=== PATIENT | male | born 1945 | race Hispanic/Latino ===

== ENCOUNTER → 2020-06-06 | Outpatient (CLI) | payer MEDICARE ==
[~2020-06-06] MED LIST: ATOR10 PO; CHOL200059 PO; LEVO25TA54 PO; LUTE40CA PO; PANT40TA54 PO
== END | disposition home or self-care (01) ==
LOC: RAH 11:25
PROVIDERS: ATTEND Physical Medicine & Rehabilitation
DX: M75.121 Complete rotator cuff tear or rupture of right shoulder, not specified as traumatic (principal); M75.122 Complete rotator cuff tear or rupture of left shoulder, not specified as traumatic
CPT/HCPCS: 73030

== ENCOUNTER → 2020-06-26 | Outpatient (CLI) | payer MEDICARE | END | disposition home or self-care (01) | LOC: RAH 12:07 | PROVIDERS: ATTEND Physical Medicine & Rehabilitation | DX: M19.012 Primary osteoarthritis, left shoulder (principal); M75.121 Complete rotator cuff tear or rupture of right shoulder, not specified as traumatic | CPT/HCPCS: 73221 ==

== ENCOUNTER → 2020-07-20 | Outpatient (CLI) | payer MEDICARE | END | disposition home or self-care (01) | LOC: RAH 11:07 | PROVIDERS: ATTEND Physical Medicine & Rehabilitation | DX: M75.111 Incomplete rotator cuff tear or rupture of right shoulder, not specified as traumatic (principal) | CPT/HCPCS: 73221 ==

== ENCOUNTER 2021-01-03 21:35 | Inpatient (IN) | payer MEDICARE ==
[~2021-01-03] VITALS: Ht 167.6 cm; Wt 79.4 kg
[~2021-01-03 21:35] MED LIST changes: +FERS325 PO
[2021-01-03] MEDS ORDERED: PANTOPRAZOLE 40 MG/VIAL IV SCH (22:00)
[2021-01-03 22:09] LABS: BASOPHILS % (AUTO) 0.7 % (0.0-5.0); EOSINOPHILS % (AUTO) 3.2 % (0.0-8.0); HEMATOCRIT 34.4 % (42-54); LYMPHOCYTES % (AUTO) 24.1 % (21.0-51.0); MEAN CORPUSCULAR HEMOGLOBIN 29.1 pg (27.0-33.0); MEAN CORPUSCULAR HGB CONC 32.3 g/dL (32.0-36.0); MEAN CORPUSCULAR VOLUME 90.3 fL (79-99); MONOCYTES % (AUTO) 10.2 % (3.0-13.0); NEUTROPHILS % (AUTO) 61.5 % (40.0-77.0); PLATELET COUNT (AUTO) 232 K/uL (130-400); RED BLOOD CELL COUNT(AUTO) 3.81 MIL/uL (4.50-6.20); RED CELL DISTRIBUTION WIDTH 13.6 % (11.0-15.5); WHITE BLOOD COUNT (AUTO) 7.1 K/uL (4.8-10.8)
[2021-01-03 22:21] LABS: POTASSIUM 3.9 mmol/L (3.5-5.1)
[2021-01-03 22:22] LABS: INR 1.05 (0.85-1.15); PROTHROMBIN TIME 11.4 SEC (9.6-11.6)
[2021-01-03 22:25] LABS: ALBUMIN 3.4 g/dL (3.5-5.0); BILIRUBIN,TOTAL 0.2 mg/dL (0.2-1.0); TOTAL PROTEIN, SERUM 6.8 g/dL (6.0-8.3)
[2021-01-03 23:04] VITALS: BP 138/78
[2021-01-04] VITALS (25 sets, daily range): BP systolic 102–149; BP diastolic 57–91
[2021-01-04] MEDS ORDERED: DEXTROSE 5 %-0.45 % NACL 1,000 ML IV ONE (00:30)
[2021-01-04] MEDS ORDERED: PANTOPRAZOLE 40 MG/VIAL ONE (00:44)
[2021-01-04] MEDS ORDERED: 0.9%NACL 100ML 100 ML ONE (00:45)
[2021-01-04] MEDS: PANTOPRAZOLE 40MG INJ 80 MG in 0.9%NACL 100ML 100 ML IV SCH ×3 (00:49→20:06)
[2021-01-04] MEDS ORDERED: PEG 3350/NA SULF,BICARB,CL/KCL 4000 ML SOLN ONE (02:35)
[2021-01-04] MEDS ORDERED: PEG 3350/NA SULF,BICARB,CL/KCL 4000 ML SOLN PO ONE (03:30)
[2021-01-04 03:38] LABS: HEMATOCRIT 31.4 % (42-54); MEAN CORPUSCULAR HEMOGLOBIN 29.1 pg (27.0-33.0); MEAN CORPUSCULAR HGB CONC 31.5 g/dL (32.0-36.0); MEAN CORPUSCULAR VOLUME 92.4 fL (79-99); PLATELET COUNT (AUTO) 226 K/uL (130-400); RED CELL DISTRIBUTION WIDTH 13.5 % (11.0-15.5); WHITE BLOOD COUNT (AUTO) 7.7 K/uL (4.8-10.8)
[2021-01-04 04:11] LABS: BASOPHILS % (MANUAL) 2 % (0-2); EOSINOPHILS % (MANUAL) 2 % (1-6); LYMPHOCYTES % (MANUAL) 25 % (22-44); MONOCYTES % (MANUAL) 3 % (2-9); SEGMENTED NEUTROPHILS % 68 % (40-70)
[2021-01-04 04:12] LABS: MAN.DIFF COMMENT-IMPRESSION MANUAL DIFFERENTIAL; PLATELET MORPHOLOGY COMMENT ADEQUATE
[2021-01-04 08:07] LABS: HEMATOCRIT 32.2 % (42-54)
[2021-01-04] MEDS ORDERED: PROPOFOL 10 MG/ML 20ML VIAL IV ONE (12:29)
[2021-01-04 13:47] LABS: HEMATOCRIT 26.6 % (42-54)
[2021-01-04] MEDS: 0.9%NACL 1000ML 1,000 ML IV SCH ×2 (16:45→16:46)
[2021-01-05 01:47] LABS: HEMATOCRIT 23.2 % (42-54); MEAN CORPUSCULAR HEMOGLOBIN 29.2 pg (27.0-33.0); MEAN CORPUSCULAR HGB CONC 32.3 g/dL (32.0-36.0); MEAN CORPUSCULAR VOLUME 90.3 fL (79-99); RED BLOOD CELL COUNT(AUTO) 2.57 MIL/uL (4.50-6.20); RED CELL DISTRIBUTION WIDTH 13.7 % (11.0-15.5); WHITE BLOOD COUNT (AUTO) 6.7 K/uL (4.8-10.8)
[2021-01-05 04:55] VITALS: BP 120/65
[2021-01-05] MEDS: PANTOPRAZOLE 40MG INJ 80 MG in 0.9%NACL 100ML 100 ML IV SCH (05:44)
[2021-01-05 08:00] VITALS: BP 126/70
[2021-01-05 10:30] LABS: MEAN CORPUSCULAR HEMOGLOBIN 29.3 pg (27.0-33.0); MEAN CORPUSCULAR VOLUME 91.4 fL (79-99); RED BLOOD CELL COUNT(AUTO) 2.8 MIL/uL (4.50-6.20); RED CELL DISTRIBUTION WIDTH 13.7 % (11.0-15.5); WHITE BLOOD COUNT (AUTO) 6.7 K/uL (4.8-10.8)
[2021-01-05] MEDS ORDERED: EPOETIN ALFA-EPBX (NON-ESRD) 10,000 UNIT/ML VIAL SQ SCH (11:00)
[2021-01-05 11:12] LABS: RETICULOCYTE % (AUTO) 0.98 % (0.42-2.23)
[2021-01-05] MEDS ORDERED: COMPOUND IV MISC 1 EACH IVSOLN MISC PRN (11:30)
[2021-01-05 11:45] LABS: THYROID STIMULATING HORMONE 3.89 uIU/mL (0.36-3.74)
[2021-01-05 11:57] VITALS: BP 140/77
[2021-01-05] MEDS: IRON SUCROSE COMPLEX 300 MG in 0.9%NACL 50ML 50 ML IV SCH (13:16)
[2021-01-05 15:51] LABS: HEMATOCRIT 23.5 % (42-54); MEAN CORPUSCULAR HEMOGLOBIN 28.8 pg (27.0-33.0); MEAN CORPUSCULAR HGB CONC 31.5 g/dL (32.0-36.0); MEAN CORPUSCULAR VOLUME 91.4 fL (79-99); RED BLOOD CELL COUNT(AUTO) 2.57 MIL/uL (4.50-6.20); RED CELL DISTRIBUTION WIDTH 13.7 % (11.0-15.5); WHITE BLOOD COUNT (AUTO) 5.9 K/uL (4.8-10.8)
[2021-01-05 16:00] VITALS: BP 129/74
[2021-01-05 16:23] LABS: % IRON SATURATION 108.2 % (30-44)
[2021-01-05 20:00] VITALS: BP 130/73
[2021-01-05] MEDS: PANTOPRAZOLE 40 MG/VIAL IVP SCH (20:45)
[2021-01-05] MEDS ORDERED: ATORVASTATIN 10 MG TABLET PO SCH (21:00)
[2021-01-06] VITALS: BP 143/74
[2021-01-06 04:00] VITALS: BP 120/73
[2021-01-06] MEDS ORDERED: LEVOTHYROXINE 25 MCG TABLET ONE (05:43)
[2021-01-06 05:51] LABS: BASOPHILS % (AUTO) 0.5 % (0.0-5.0); EOSINOPHILS % (AUTO) 2.7 % (0.0-8.0); HEMATOCRIT 27.8 % (42-54); LYMPHOCYTES % (AUTO) 15.9 % (21.0-51.0); MEAN CORPUSCULAR HEMOGLOBIN 28.7 pg (27.0-33.0); MEAN CORPUSCULAR HGB CONC 31.7 g/dL (32.0-36.0); MEAN CORPUSCULAR VOLUME 90.6 fL (79-99); NEUTROPHILS % (AUTO) 72.5 % (40.0-77.0); PLATELET COUNT (AUTO) 179 K/uL (130-400); RED BLOOD CELL COUNT(AUTO) 3.07 MIL/uL (4.50-6.20); WHITE BLOOD COUNT (AUTO) 7.4 K/uL (4.8-10.8)
[2021-01-06 06:30] LABS: CREATININE 0.9 mg/dL (0.5-1.5); POTASSIUM 4.2 mmol/L (3.5-5.1)
[2021-01-06] MEDS ORDERED: LEVOTHYROXINE 25 MCG TABLET PO SCH (07:30)
[2021-01-06 08:00] VITALS: BP 130/70
[2021-01-06] MEDS ORDERED: CHOLECALCIFEROL 1000 UNIT PO SCH (09:00)
[2021-01-06] MEDS: PANTOPRAZOLE 40 MG/VIAL IVP SCH (09:06)
[2021-01-06] MEDS: IRON SUCROSE COMPLEX 300 MG in 0.9%NACL 50ML 50 ML IV SCH (09:06)
[2021-01-06 11:04] LABS: HEMATOCRIT 27.8 % (42-54)
[2021-01-06 12:00] VITALS: BP 139/81
[2021-01-06 16:00] VITALS: BP 141/60
[2021-01-06] MEDS ORDERED: FOLI0.8T3 PO (16:25)
[2021-01-06] MEDS ORDERED: FERS325 PO (16:25)
[2021-01-07] MEDS ORDERED: LUTEIN 40 MG PO SCH (09:00)
== END 2021-01-06 17:50 | disposition home or self-care (01) | DRG 378 ==
LOC: EDH 21:35 → EDHIP 01-04 02:00 → 3CH 01-04 08:45
PROVIDERS: ADMIT Internal Medicine; ATTEND Internal Medicine
PROC: 0DJD8ZZ Inspection of Lower Intestinal Tract, Via Natural or Artificial Opening Endoscopic (ICD-10-PCS; 2021-01-04)
PROC: 30233N1 Transfusion of Nonautologous Red Blood Cells into Peripheral Vein, Percutaneous Approach (ICD-10-PCS; principal; 2021-01-05)
DX: K57.31 Diverticulosis of large intestine without perforation or abscess with bleeding (principal); D62 Acute posthemorrhagic anemia; Z20.822 Contact with and (suspected) exposure to COVID-19; E03.9 Hypothyroidism, unspecified; E78.5 Hyperlipidemia, unspecified; E78.00 Pure hypercholesterolemia, unspecified; Z80.42 Family history of malignant neoplasm of prostate; Z82.5 Family history of asthma and other chronic lower respiratory diseases; Z83.3 Family history of diabetes mellitus; Z82.49 Family history of ischemic heart disease and other diseases of the circulatory system
CPT/HCPCS: 36415; 36430; 45378; 74176; 76705; 80048; 80053; 82270; 82550; 82607; 82728; 82746; 83540; 83550; 83690; 84443; 85014; 85018; 85025; 85027; 85045; 85610; 85730; 86850; 86900; 86901; 86923; 87635; C9113; G0378; J1756; J2704; J7030; J7042; P9016

== ENCOUNTER → 2022-09-02 | Outpatient (CLI) | payer MEDICARE ==
[~2022-09-02] MED LIST changes: +FOLI0.8T3 PO
== END | disposition home or self-care (01) ==
LOC: RAH 12:52
PROVIDERS: ATTEND Neurological Surgery
DX: M50.322 Other cervical disc degeneration at C5-C6 level (principal); M48.02 Spinal stenosis, cervical region
CPT/HCPCS: 72141

== ENCOUNTER → 2022-11-28 | Outpatient (CLI) | payer MEDICARE | END | disposition home or self-care (01) | LOC: RAH 13:48 | PROVIDERS: ATTEND Internal Medicine | DX: R51.9 Headache, unspecified (principal) | CPT/HCPCS: 70450 ==

== ENCOUNTER → 2022-12-26 | Outpatient (CLI) | payer MEDICARE | END | disposition home or self-care (01) | LOC: RAH 12:57 | PROVIDERS: ATTEND Nurse Practitioner | DX: M75.111 Incomplete rotator cuff tear or rupture of right shoulder, not specified as traumatic (principal); M65.811 Other synovitis and tenosynovitis, right shoulder; M19.011 Primary osteoarthritis, right shoulder; M19.012 Primary osteoarthritis, left shoulder; M75.42 Impingement syndrome of left shoulder | CPT/HCPCS: 73221 ==

== ENCOUNTER 2023-03-14 07:48 | Observation (INO) | payer MEDICARE ==
[2023-03-12 14:31] LABS: BASOPHILS # (AUTO) 0.05 K/uL (0.00-0.20); BASOPHILS % (AUTO) 0.7 % (0.0-5.0); EOSINOPHILS # (AUTO) 0.18 K/uL (0.00-0.70); EOSINOPHILS % (AUTO) 2.6 % (0.0-8.0); HEMATOCRIT 47.7 % (42-54); IMMATURE GRANULOCYTE ABSOLUTE 0.03 K/uL (0-1); LYMPHOCYTES # (AUTO) 1.5 K/uL (1.0-4.8); MEAN CORPUSCULAR HEMOGLOBIN 31.9 pg (27.0-33.0); MEAN CORPUSCULAR HGB CONC 32.9 g/dL (32.0-36.0); MONOCYTES # (AUTO) 0.5 K/uL (0.1-1.0); MONOCYTES % (AUTO) 6.9 % (3.0-13.0); NEUTROPHILS # (AUTO) 4.8 K/uL (1.8-7.7); NEUTROPHILS % (AUTO) 68.4 % (40.0-77.0); PLATELET COUNT (AUTO) 204 K/uL (130-400); RED BLOOD CELL COUNT(AUTO) 4.92 MIL/uL (4.50-6.20); RED CELL DISTRIBUTION WIDTH 13.1 % (11.0-15.5)
[2023-03-12 14:37] LABS: INR 0.95 (0.85-1.15); PROTHROMBIN TIME 11.1 SEC (9.6-11.6)
[2023-03-12 14:40] VITALS: BP 149/79; PULSE 73; RESP 16
[2023-03-12 14:46] LABS: ALBUMIN 3.9 g/dL (3.5-5.0); CARBON DIOXIDE 27 mmol/L (21-32); CHLORIDE 105 mmol/L (101-111); CREATININE 1.1 mg/dL (0.5-1.5); GLOMERULAR FILTR. RATE CALC 69 mL/min (>90); GLUCOSE,RANDOM 151 mg/dL (70-105); POTASSIUM 4.2 mmol/L (3.5-5.1); SODIUM SERUM 143 mmol/L (136-145); UREA NITROGEN, BLOOD 18 mg/dL (7-18)
[~2023-03-14] VITALS: Ht 167.6 cm; Wt 86.2 kg
[2023-03-14] VITALS (25 sets, daily range): BP systolic 119–151; BP diastolic 73–87; PULSE 66–85; RESP 15–18
[~2023-03-14 07:48] MED LIST changes: -ATOR10 PO; +ATOR10TA69 PO; -CHOL200059 PO; -FERS325 PO; -FOLI0.8T3 PO; -LUTE40CA PO; -PANT40TA54 PO
[2023-03-14] MEDS ORDERED: LACTATED RINGERS 1000ML 1,000 ML IV ONE ×2 (08:22→09:50)
[2023-03-14] MEDS ORDERED: CEFAZOLIN SODIUM 2 GM VIAL ONE (08:22)
[2023-03-14] MEDS ORDERED: ROPIVACAINE 0.5% 5MG/ML 30ML ONE ×2 (08:25→17:34)
[2023-03-14] MEDS ORDERED: LIDOCAINE 2%-EPI 1:200,000 20 ML VIAL IJ ONE (08:25)
[2023-03-14] MEDS ORDERED: DEXAMETHASONE SOD PHOSPHATE 10MG/ML 1ML VIAL ONE (08:32)
[2023-03-14] MEDS ORDERED: MIDAZOLAM HCL 1 MG/ML 2ML VIAL ONE (08:32)
[2023-03-14] MEDS ORDERED: FENTANYL CITRATE PF 50 MCG/1 ML 2ML VIAL ONE (08:32)
[2023-03-14] MEDS ORDERED: PROPOFOL 10 MG/ML 20ML VIAL IV ONE (09:14)
[2023-03-14] MEDS ORDERED: ROCURONIUM 10MG/1ML SYR 10 MG/ML ML ONE (09:18)
[2023-03-14] MEDS ORDERED: EPINEPHRINE PF 1MG (1:1,000) 1 MG/ML AMP ONE (14:25)
[2023-03-14] MEDS ORDERED: EPINEPHRINE PF 1MG (1:1,000) 1 MG/ML AMP MISC ONE (14:55)
[2023-03-14] MEDS ORDERED: GLYCOPYRROLATE 1 MG/5 ML SYRINGE ONE (15:12)
[2023-03-14] MEDS ORDERED: PHENYLEPHRINE HCL 10 MG/ML 1ML VIAL IV ONE (16:54)
[2023-03-14] MEDS ORDERED: 0.9%NACL 10ML VIAL ONE (16:56)
[2023-03-14] MEDS ORDERED: KETOROLAC 30MG VIAL (30MG/ML) ONE (17:37)
[2023-03-14] MEDS ORDERED: NEOSTIGMINE 5MG/5ML SYR IV ONE (17:39)
[2023-03-14] MEDS ORDERED: CYCL5TAB PO (18:06)
[2023-03-14] MEDS ORDERED: GABA-529 PO (18:06)
[2023-03-14] MEDS ORDERED: HYDR-4060 PO (18:06)
[2023-03-14] MEDS: 0.9%NACL 1000ML 1,000 ML IV SCH (19:00)
[2023-03-14] MEDS ORDERED: CYCLOBENZAPRINE HCL 10 MG TABLET PO PRN (19:00)
[2023-03-14] MEDS ORDERED: POTASSIUM CHLORIDE 20MEQ/100ML 100 ML IV PRN (19:00)
[2023-03-14] MEDS: KETOROLAC 15MG/ML VIAL (15MG/ML) IV SCH (19:00)
[2023-03-14] MEDS ORDERED: BENZOCAINE/MENTH/CETYLPYRD CL 1 EACH LOZENGE MM PRN (19:00)
[2023-03-14] MEDS ORDERED: FE FUMARATE/FA/MV, MIN COMB#15 1 TAB PO PRN (19:00)
[2023-03-14] MEDS ORDERED: KETOROLAC 15MG/ML VIAL (15MG/ML) IV PRN (19:00)
[2023-03-14] MEDS ORDERED: TRAMADOL HCL 50 MG TABLET PO PRN (19:00)
[2023-03-14] MEDS ORDERED: ONDANSETRON 4MG INJ IVP PRN (19:00)
[2023-03-14] MEDS ORDERED: HYDROCODONE/ACETAMINOPHEN 5/325 MG TAB PO PRN (19:00)
[2023-03-14] MEDS ORDERED: CALCIUM CARB 500MG PO PRN (19:00)
[2023-03-14] MEDS ORDERED: KCL 20 MEQ ERTAB PO PRN (19:00)
[2023-03-14] MEDS ORDERED: POTASSIUM CHLORIDE 10% ELIXIR 20 MEQ/15 ML UDCUP PO PRN (19:00)
[2023-03-14] MEDS ORDERED: KETOROLAC 15MG/ML VIAL (15MG/ML) ONE (19:08)
[2023-03-14] MEDS: DOCUSATE SODIUM 100 MG CAP PO SCH (21:13)
[2023-03-14] MEDS: GABAPENTIN 100 MG CAPSULE PO SCH (21:13)
[2023-03-15] VITALS: BP 120/75; PULSE 63; RESP 18
[2023-03-15 01:00] VITALS: BP 135/84; PULSE 73; RESP 18
[2023-03-15] MEDS: CEFAZOLIN SODIUM 2 GM VIAL IVPB SCH ×2 (01:13→09:30)
[2023-03-15 02:00] VITALS: BP 131/75; PULSE 85; RESP 18
[2023-03-15] MEDS: KETOROLAC 15MG/ML VIAL (15MG/ML) IV SCH ×2 (03:00→05:22)
[2023-03-15 03:55] VITALS: BP 115/72; PULSE 75; RESP 18
[2023-03-15] MEDS: 0.9%NACL 1000ML 1,000 ML IV SCH (04:58)
[2023-03-15 08:00] VITALS: BP 163/93; PULSE 75; RESP 19
[2023-03-15] MEDS: DOCUSATE SODIUM 100 MG CAP PO SCH (09:00)
[2023-03-15] MEDS ORDERED: POLYETHYLENE GLYCOL 3350 17 GM POWD.PACK PO SCH (09:00)
[2023-03-15] MEDS: GABAPENTIN 100 MG CAPSULE PO SCH (09:31)
[2023-03-17] MEDS ORDERED: BISACODYL 10 MG SUPP.RECT RC PRN (19:00)
== END 2023-03-15 12:15 | disposition home or self-care (01) ==
LOC: DAH 07:48 → DAHIP 07:48 → UNDOADMOB 07:48 → DAHIP 07:49 → 4CH 19:50
PROVIDERS: ADMIT Student in an Organized Health Care Education/Training Program; ATTEND Student in an Organized Health Care Education/Training Program
DX: M94.212 Chondromalacia, left shoulder (principal); M75.122 Complete rotator cuff tear or rupture of left shoulder, not specified as traumatic; M75.42 Impingement syndrome of left shoulder; M19.012 Primary osteoarthritis, left shoulder; M75.22 Bicipital tendinitis, left shoulder; M65.812 Other synovitis and tenosynovitis, left shoulder; G89.18 Other acute postprocedural pain; E78.00 Pure hypercholesterolemia, unspecified; E03.9 Hypothyroidism, unspecified; Z98.890 Other specified postprocedural states; Z79.899 Other long term (current) drug therapy
CPT/HCPCS: 82040; 80048; 85025; 85610; 85730; 84134; 86140; 36415; 64415; 29828; 29824; 29826; 29827; 96374; 96376; 97161; 97530; G0378 ×15; A4600; C1713 ×2; A4663; J7030; A4565; J7120; J3010; J3490 ×2; J1100; J2710; J0171 ×2; J2250; J2704; J1885 ×3; J2795 ×2; J2371; J0690 ×4; A6223; A4649 ×3; A4930; A5120; A4215; A4223; A4222; A4221

== ENCOUNTER → 2024-01-05 | Outpatient (CLI) | payer MEDICARE ==
[~2024-01-05] MED LIST changes: +CYCL5TAB PO; +GABA-529 PO; +HYDR-4060 PO
== END | disposition home or self-care (01) ==
LOC: RAH 08:21
PROVIDERS: ATTEND Physical Medicine & Rehabilitation
DX: S13.150A Subluxation of C4/C5 cervical vertebrae, initial encounter (principal); M47.812 Spondylosis without myelopathy or radiculopathy, cervical region; M48.02 Spinal stenosis, cervical region; M54.2 Cervicalgia; X58.XXXA Exposure to other specified factors, initial encounter; Y93.89 Activity, other specified; Y92.89 Other specified places as the place of occurrence of the external cause; Y99.8 Other external cause status
CPT/HCPCS: 72050

== ENCOUNTER → 2024-11-15 | Outpatient (CLI) | payer MEDICARE ==
[~2024-11-15] MED LIST changes: -CYCL5TAB PO; +CYCL5TAB3 PO
--- NOTE | 2024-11-15 20:01 | HMCIMG ---
EXAM: CR left Hip, 3 View. CLINICAL HISTORY: PAIN IN RIGHT HIP, PAIN IN LEFT HIP COMPARISON: None provided. FINDINGS: BONES: No acute fracture or aggressive appearing osseous lesion. JOINTS: Mild degenerative changes. SOFT TISSUES: The soft tissues are unremarkable. IMPRESSION: Mild degenerative changes. /[place]
== END | disposition home or self-care (01) ==
LOC: RAH 12:28
PROVIDERS: ATTEND Physical Medicine & Rehabilitation
DX: M16.0 Bilateral primary osteoarthritis of hip (principal); M25.552 Pain in left hip; M25.551 Pain in right hip
CPT/HCPCS: 73521

== ENCOUNTER → 2025-01-18 | Outpatient (CLI) | payer MEDICARE ==
--- NOTE | 2025-01-18 14:27 | HMCIMG ---
Comparison: No prior Findings: There is no acute fracture or dislocation. There are no erosive changes seen. Flexion and extension views obtained show no instability, with anterior listhesis of L4 on L5. There are degenerative changes manifested by endplate osteophytes at multiple vertebral body levels. Severe narrowing of the disc at L5-S1 impression: No fracture or evidence of instability Moderate degenerative changes of the spine. /[place]
== END | disposition home or self-care (01) ==
LOC: RAH 08:28
PROVIDERS: ATTEND Physical Medicine & Rehabilitation
DX: M47.816 Spondylosis without myelopathy or radiculopathy, lumbar region (principal); M54.51 Vertebrogenic low back pain; M48.07 Spinal stenosis, lumbosacral region; M25.78 Osteophyte, vertebrae
CPT/HCPCS: 72114